=== PATIENT | female | born 1995 | race Caucasian/White ===

== ENCOUNTER 2017-06-06 17:04 | Emergency (ER) | payer OTHER ==
[~2017-06-06] VITALS: Ht 154.9 cm; Wt 65.0 kg
[2017-06-06 17:05] VITALS: BP 119/71; PULSE 91; RESP 18; TEMP 98.8; O2SAT 97
[2017-06-06 17:19] VITALS: BP 125/72; PULSE 110; RESP 20; O2SAT 100
[2017-06-06] MEDS ORDERED: PREN1TAB63 (17:19)
--- NOTE | 2017-06-06 17:25 | PD ---
HPI Chief Complaint: Related Problem Time Seen by Provider: 17:14 Travel History International Travel<30 days: No Contact w/Intl Traveler<30days: No Traveled to known affect area: No History of Present Illness HPI Patient comes to emergency Department complaining of intermittent left lower quadrant abdominal cramping ongoing for 2 weeks. Pain occasionally radiates across the right lower quadrant. Patient states she last saw her OB approximated 4 weeks ago and she is approximately 6 weeks . Patient is A1. Patient states she contacted her OB today who recommended she come to the emergency department for further treatment and evaluation secondary to the history of having a miscarriage. Patient denies any pain currently. Patient denies anything making this better or worse. Denies any vaginal bleeding. Denies any fevers, chest pain, shortness of breath, back pain, or loss change in bowel or bladder. PFSH Past Medical History Medical History: Denies Significant Hx ?: LMP: 04/23/2017 : 2 Miscarriage: 1 Social History Alcohol Use: No Tobacco Use: No Substance Use: No Allergies-Medications (Allergen,Severity, Reaction): Coded Allergies: ampicillin (Verified Allergy, Unknown, 06/06/17) Reported Meds & Prescriptions Reported Meds & Active Scripts Active Reported Vitamins 0.8 mg ( Multivit-Min W/Fe-FA) 1 Tab Tab Review of Systems Except as stated in HPI: all other systems reviewed are Neg Physical Exam Narrative GENERAL: Well-developed, well nourished, in no acute distress, and non-ill appearing. SKIN: Focused skin assessment warm and dry. HEAD: Atraumatic. Normocephalic. EYES: Pupils equal and round. EOMI. No scleral icterus. No injection or drainage. ENT: No nasal bleeding or discharge. Mucous membranes pink and moist. NECK: Trachea midline. No JVD. Supple. No nuclear rigidity. CARDIOVASCULAR: Regular rate and rhythm. No murmur appreciated. RESPIRATORY: No accessory muscle use. No respiratory distress. Clear to auscultation. Breath sounds equal bilaterally. GASTROINTESTINAL: Abdomen soft, non-tender, nondistended, and no guarding. Hepatic and splenic margins not palpable. Normal bowel sounds 4. No pulsatile mass. MUSCULOSKELETAL: No obvious deformities. No clubbing. No cyanosis. No edema. Full range of motion. NEUROLOGICAL: Awake and alert. No obvious cranial nerve deficits. Motor grossly within normal limits. Normal speech. PSYCHIATRIC: Appropriate mood and affect; insight and judgment normal. Data Data Last Documented VS Vital Signs Date Time Temp Pulse Resp B/P (MAP) Pulse Ox O2 Delivery O2 Flow Rate FiO2 06/06/17 17:19 110 20 125/72 (89) 100 06/06/17 17:05 98.8 Room Air Orders Orders Beta Hcg (Quant/Titer) (06/06/17 17:19) Complete Blood Count With Diff (06/06/17 17:19) Comprehensive Metabolic Panel (06/06/17 17:19) Complete Rh (06/06/17 17:19) Us Pelvis (Ques Preg/Ectopic) (06/06/17 ) Urinalysis - C+S If Indicated (06/06/17 17:19) Iv Access Insert/Monitor (06/06/17 17:19) Ecg Monitoring (06/06/17 17:19) Ed Urine Pregnancytest Poc (06/06/17 17:19) Ed Discharge Order (06/06/17 19:12) Labs Laboratory Tests Test 06/06/17 17:26 White Blood Count 10.1 TH/MM3 Red Blood Count 4.46 MIL/MM3 Hemoglobin 14.2 GM/DL Hematocrit 38.8 % Mean Corpuscular Volume 86.9 FL Mean Corpuscular Hemoglobin 31.8 PG Mean Corpuscular Hemoglobin Concent 36.5 % Red Cell Distribution Width 12.5 % Platelet Count 169 TH/MM3 Mean Platelet Volume 7.5 FL Neutrophils (%) (Auto) 61.7 % Lymphocytes (%) (Auto) 31.6 % Monocytes (%) (Auto) 5.7 % Eosinophils (%) (Auto) 0.8 % Basophils (%) (Auto) 0.2 % Neutrophils # (Auto) 6.2 TH/MM3 Lymphocytes # (Auto) 3.2 TH/MM3 Monocytes # (Auto) 0.6 TH/MM3 Eosinophils # (Auto) 0.1 TH/MM3 Basophils # (Auto) 0.0 TH/MM3 CBC Comment AUTO DIFF Differential Comment AUTO DIFF CONFIRMED Platelet Estimate NORMAL Platelet Morphology Comment NORMAL Urine Color LIGHT-YELLOW Urine Turbidity CLEAR Urine pH 6.5 Urine Specific Valera 1.014 Urine Protein NEG mg/dL Urine Glucose (UA) NEG mg/dL Urine Ketones NEG mg/dL Urine Occult Blood NEG Urine Nitrite NEG Urine Bilirubin NEG Urine Urobilinogen LESS THAN 2.0 MG/DL Urine Leukocyte Esterase NEG Urine RBC LESS THAN 1 /hpf Urine WBC 1 /hpf Urine Squamous Epithelial Cells 1 /hpf Urine Bacteria RARE /hpf Microscopic Urinalysis Comment CULT NOT INDICATED Blood Urea Nitrogen 10 MG/DL Creatinine 0.54 MG/DL Random Glucose 83 MG/DL Total Protein 7.3 GM/DL Albumin 3.9 GM/DL Calcium Level 9.0 MG/DL Alkaline Phosphatase 53 U/L Aspartate Amino Transf (AST/SGOT) 12 U/L Alanine Aminotransferase (ALT/SGPT) 28 U/L Total Bilirubin 0.3 MG/DL Sodium Level 135 MEQ/L Potassium Level 3.5 MEQ/L Chloride Level 103 MEQ/L Carbon Dioxide Level 24.0 MEQ/L Anion Gap 8 MEQ/L Estimat Glomerular Filtration Rate 140 ML/MIN Human Chorionic Gonadotropin, Quant 27993 MIU/ML [facility] Medical Decision Making Medical Screen Exam Complete: Yes Emergency Medical Condition: Yes Interpretation(s) Ultrasound read by the radiologist shows: 6 week IUP Differential Diagnosis Ectopic , threatened miscarriage, inevitable miscarriage, UTI, ovarian cyst, discomforts of , constipation Narrative Course The patient presented with lower abdominal/pelvic pain and the patient was nontender. The pain is not rhythmic. The patient is at about 6 weeks. The patient otherwise appeared comfortable and hydrated. There was no vaginal bleeding. FHTs were performed and were normal. US was performed and showed SIUP at 6 weeks. Urine analysis revealed no evidence of UTI. Patient refused pelvic exam. Pain is most likely due to ligamental pains or normal discomforts of , possibly due to ovarian cyst and evaluation revealed no clinical evidence or picture of acute ovarian torsion at this time. The patient appears comfortable and no distress and no vomiting. The patient is to return if worsens , pain worsens or changes, develops vaginal bleeding, develop persistent fever, inability to tolerate fluids with or without vomiting, unable to establish follow up or as needed. There was no evidence of an acute, surgical abdomen at this time. There was no clinical evidence to support cholecystitis/ cholelithiasis, pancreatitis, perforation of gastric ulcer, colitis, diverticulitis, obstruction, abdominal or femoral herniation, volvulus, early appendicitis, or hernial incarceration or strangulation at this time. There was no evidence to support vascular pathology such as AAA, mesenteric ischemia , nor GIB. There was also no clinical evidence by history, exam or risk factors to suggest atypical presentation of cardiac disease such as ACS, AMI or atypical angina. No evidence to suggest early labor or obvious miscarriage at this time. The patient agreed with plan of care and management. The patient was instructed to follow up with their OB physician within the next 2-3 days. Patient in no obvious distress upon re-evaluation. All pertinent laboratory/ Radiology result(s) discussed with patient. Discussed patient with Dr. Thompson prior to discharge, who is in agreement with plan of care and disposition. Any questions/concerns in reference to patient diagnosis/ condition discussed and clarified prior to patient's discharge. Reinforced sheer importance of close follow up with patient's OB. Instructed patient to return to ED immediately, if symptoms return/worsen. Patient showed understanding of above instructions. Further instructions and recommendations were detailed in discharge paperwork. Patient ambulated without difficulty out of ED at discharge. Diagnosis Primary Impression: Abdominal pain during Qualified Codes: O26.891 - Other specified related conditions, first trimester; R10.9 - Unspecified abdominal pain Patient Instructions: Abdominal Pain in (ED), General Instructions Additional Instructions: Follow-up with your OB this week for reevaluation. Return to the emergency department if symptoms get worse. Disposition: 01 DISCHARGE HOME Condition: Stable Santos Brooks Jun 06, 2017 17:25
[2017-06-06 18:00] LABS: AUTOMATED NEUTROPHIL # 6.2 TH/MM3 (1.8-7.7); BASOPHIL % 0.2 % (0.0-2.0); EOSINOPHIL # 0.1 TH/MM3 (0-0.4); EOSINOPHIL % 0.8 % (0.0-4.0); HEMATOCRIT 38.8 % (35.0-46.0); HEMOGLOBIN 14.2 GM/DL (11.6-15.3); LYMPH % 31.6 % (9.0-44.0); LYMPHOCYTE # 3.2 TH/MM3 (1.0-4.8); MEAN CELL VOLUME 86.9 FL (80.0-100.0); MEAN CORPUSCULAR HEMOGLOBIN 31.8 PG (27.0-34.0); MEAN PLATELET VOLUME 7.5 FL (7.0-11.0); MONO % 5.7 % (0.0-8.0); MONOCYTE # 0.6 TH/MM3 (0-0.9); NEUT % 61.7 % (16.0-70.0); PLATELET COUNT 169 TH/MM3 (150-450); RED BLOOD COUNT 4.46 MIL/MM3 (4.00-5.30); RED CELL DISTRIBUTION WIDTH 12.5 % (11.6-17.2); WHITE BLOOD COUNT 10.1 TH/MM3 (4.0-11.0)
[2017-06-06 18:06] LABS: MEAN CORPUSCULAR HGB CONC 36.5 % (32.0-36.0)
[2017-06-06 18:08] LABS: BACTERIA, URINE RARE /hpf; BILIRUBIN, URINE NEG (NEG); BLOOD, URINE NEG (NEG); GLUCOSE,URINE NEG (NEG); KETONE, URINE NEG (NEG); NITRITE,URINE NEG (NEG); PH, URINE 6.5 (5.0-8.5); SQUAMOUS EPITHELIAL CELL URINE 1 /hpf (0-5); URINE COLOR LIGHT-YELLOW (YELLW/STRAW); URINE LEUKOCYTE ESTERASE NEG (NEG)
[2017-06-06 18:17] LABS: ALBUMIN 3.9 GM/DL (3.4-5.0); ALT (GPT) 28 U/L (10-53); AST (GOT) 12 U/L (15-37); BLOOD UREA NITROGEN 10 MG/DL (7-18); CHLORIDE 103 MEQ/L (98-107); CREATININE 0.54 MG/DL (0.50-1.00); GLOMERULAR FILTRATION RATE 140 ML/MIN (>89); GLUCOSE,RANDOM 83 MG/DL (74-106); SODIUM (NA) 135 MEQ/L (136-145)
[2017-06-06 18:35] LABS: ALKALINE PHOSPHATASE 53 U/L (45-117); TOTAL BILIRUBIN ADULT 0.3 MG/DL (0.2-1.0); TOTAL PROTEIN 7.3 GM/DL (6.4-8.2)
--- NOTE | 2017-06-06 19:01 | RADRPT ---
EXAM DATE/TIME: 06/06/2017 18:19 [facility] COMPARISON: No previous studies available for comparison. INDICATIONS : Pelvic pain with . LAB(S): Beta-hC MEDICAL HISTORY : . Miscarriage. SURGICAL HISTORY : None. ENCOUNTER: Initial ACUITY: 2 weeks PAIN SCORE: 1/10 LOCATION: Bilateral pelvis MEASUREMENTS: UTERUS: 8.0 x 5.6 x 4.1 cm ENDOMETRIAL STRIPE: 18 mm RIGHT OVARY: 3.4 x 2.5 x 2.5 cm LEFT OVARY: 2.4 x 1.9 x 1.7 cm FREE FLUID: No CROWN RUMP LENGTH: 0.5 cm = 6 WKS 2 DAYS FHR: 115 BPM FINDINGS: UTERUS: Intrauterine gestation with estimated gestational sac diameter of 16.4 mm yielding estimated age of 6 weeks. cardiac activity detected at 115 beats per minute. RIGHT OVARY: Small probable corpus luteum cyst LEFT OVARY: Ovary contains no mass or significant cystic lesion. MISCELLANEOUS: No free fluid. CONCLUSION: 6 week IUP Eyad Beckett MD on June 06, 2017 at 18:58 Board Certified Radiologist. This report was verified electronically.
== END 2017-06-06 19:38 | disposition home or self-care (01) ==
LOC: NEPE 17:04
DX: O26.891 Other specified pregnancy related conditions, first trimester (principal); R10.32 Left lower quadrant pain; Z88.0 Allergy status to penicillin; Z34.91 Encounter for supervision of normal pregnancy, unspecified, first trimester
CPT/HCPCS: 76700; 80053; 81001; 84702; 84703; 85025; 86901; 99284